=== PATIENT | female | born 1980 | race Caucasian/White ===

== ENCOUNTER → 2017-01-25 | Outpatient (CLI) | payer OTHER | LOC: RT 12:12 | DX: R06.02 Shortness of breath (principal); R60.0 Localized edema; R00.2 Palpitations; R53.83 Other fatigue ==

== ENCOUNTER → 2017-01-30 | Outpatient (CLI) | payer OTHER | LOC: ECHO 12:00 | DX: R06.02 Shortness of breath (principal); R60.0 Localized edema; R00.2 Palpitations; R53.83 Other fatigue | CPT/HCPCS: ECHO; 93306 ==